=== PATIENT | male | born 1975 | race Caucasian/White ===

== ENCOUNTER 2017-06-06 19:14 | Emergency (ER) | payer OTHER, MEDICAID | END 2017-06-06 21:20 | disposition home or self-care (01) | LOC: E/R 21:20 | DX: M25.512 Pain in left shoulder (principal) | CPT/HCPCS: 73030; 73060; 99283-25 ==

== ENCOUNTER 2018-01-30 19:38 | Emergency (ER) | payer OTHER ==
[2018-01-30] MEDS: DICYCLOMINE 10 MG CAP PO (22:12)
== END 2018-01-30 22:53 | disposition home or self-care (01) ==
LOC: E/R 19:38
DX: R10.9 Unspecified abdominal pain (principal); R19.7 Diarrhea, unspecified
CPT/HCPCS: 99283; Z7502